=== PATIENT | male | born 1990 | race Caucasian/White ===

== ENCOUNTER 2016-08-29 02:07 | Emergency (ER) | payer OTHER ==
[~2016-08-29] VITALS: Ht 188 cm; Wt 99.8 kg
--- NOTE | 2016-08-29 02:22 | ED CARDIAC/CP/PALPITATIONS ---
History of Present Illness General Chief Complaint: General Adult Stated Complaint: "I FEEL A LIL PRESSURE IN MY CHEST" Source: patient Exam Limitations: no limitations Vital Signs & Intake/Output Vital Signs & Intake/Output Vital Signs Date Time Temp Pulse Resp B/P Pulse O2 O2 Flow FiO2 Ox Delivery Rate 08/29 0240 142/75 08/29 0231 100 Room Air 08/29 0218 98.9 80 18 175/113 91 Room Air Reconcile Medications No Known Home Medications Triage Nurses Notes Reviewed? yes HPI: Patient [place] today and is currently driving back to [place]. Patient drank 4 energy drinks to help him with the drive. 30 minutes prior to arrival he developed a substernal chest pressure that radiated to his face. He denies any shortness of breath. Patient states the symptoms are slowly resolving. Patient denies any diaphoresis. There is no nausea or vomiting. Patient has never had symptoms like this before. Patient comes in for evaluation. Past History Travel History Traveled to [facility] past 21 day No Medical History Any Pertinent Medical History? none Surgical History Surgical History: none Psychosocial History Tobacco Use: Never used ETOH Use: denies use Illicit Drug Use: denies illicit drug use Family History Hx Contributory? No Review of Systems Review of Systems Constitutional: Reports: no symptoms. EENTM: Reports: no symptoms. Respiratory: Reports: no symptoms. Cardiovascular: Reports: see HPI, chest pain. GI: Reports: no symptoms. Genitourinary: Reports: no symptoms. Musculoskeletal: Reports: no symptoms. Skin: Reports: no symptoms. Neurological/Psychological: Reports: no symptoms. Hematologic/Endocrine: Reports: no symptoms. Immunologic/Allergic: Reports: no symptoms. All Other Systems: Reviewed and Negative Physical Exam Physical Exam General Appearance: well developed/nourished, alert, awake, anxious, mild distress Head: atraumatic, normal appearance Eyes: Bilateral: PERRL, EOMI. Ears, Nose, Throat: normal pharynx, normal ENT inspection, hearing grossly normal Neck: normal inspection, supple, full range of motion Respiratory: normal breath sounds, chest non-tender, no respiratory distress, lungs clear Cardiovascular: regular rate/rhythm, normal peripheral pulses Gastrointestinal: normal bowel sounds, soft, non-tender Extremities: normal inspection, normal capillary refill, normal range of motion, no edema Neurologic/Psych: no motor/sensory deficits, awake, alert, oriented x 3, normal gait, normal mood/affect Skin: intact, normal color, warm/dry Core Measures ACS in differential dx? No Severe Sepsis Present: No Septic Shock Present: No All Positive = PERC Ruled Out: Positive: age < 50 years, heart rate < 100 bpm, O2 sat > 94%, no hemoptysis, no hormone use, no prior DVT or PE, no unilateral leg swellin, no surgery/trauma w/ in 4w. [place] Criteria Score: 0 Progress Differential Diagnosis: AMI, costochondritis, musculoskeletal pain, myocarditis, pericarditis, pulmonary embolism Plan of Care: Orders Procedure Date/time Status Telemetry/Microfilming Document Preparer 08/29 236 Active TROPONIN LEVEL 08/29 236 Complete COMPREHENSIVE METABOLIC PANEL 08/29 236 Complete CBC WITHOUT DIFFERENTIAL 08/29 236 Complete EKG 08/29 210 Active Laboratory Tests 08/29/16 0250: Anion Gap 12, Estimated GFR > 60, BUN/Creatinine Ratio 13.8, Glucose 106 H, Calcium 9.9, Total Bilirubin 1.0, AST 40, ALT 99 H, Alkaline Phosphatase 40, Troponin I < 0.01, Total Protein 8.2, Albumin 5.2 H, Globulin 3.0, Albumin/ Globulin Ratio 1.7 08/29/16 0240: CBC w Diff NO MAN DIFF REQ, RBC 6.00, MCV 83.5, MCH 29.2, RDW 12.7, MPV 10.1, Gran % 38.7 L, Lymphocytes % 47.8, Monocytes % 11.4 H, Eosinophils % 1.4, Basophils % 0.7, Absolute Granulocytes 2.6, Absolute Lymphocytes 3.3, Absolute Monocytes 0.8 H, Absolute Eosinophils 0.1, Absolute Basophils 0, PUBS MCHC 35.0 Initial ED EKG: NSR, no ST T wave changes Departure Departure Disposition: HOME OR SELF CARE Condition: Stable Clinical Impression Primary Impression: Chest pain, unspecified Qualifiers: Chest pain type: other chest pain Qualified Code: R07.89 - Other chest pain Referrals: UNKNOWN (PCP/Family) Additional Instructions: return if symptoms worsen or for any concerns Departure Forms: Customer Survey General Discharge Information Prescriptions: Current Visit Scripts No Known Home Medications Critical Care Note Critical Care Note Critical Care Time: non-applicable
[2016-08-29 02:40] VITALS: BP 142/75
[2016-08-29 03:05] LABS: ABSOLUTE BASOPHIL COUNT 0 /CUMM (0.0-0.2); ABSOLUTE EOSINOPHIL COUNT 0.1 /CUMM (0.0-0.7); ABSOLUTE GRANULOCYTE CT 2.6 /CUMM (1.4-6.5); ABSOLUTE LYMPH COUNT 3.3 /CUMM (1.2-3.4); ABSOLUTE MONOCYTE COUNT 0.8 /CUMM (0.10-0.60); BASOPHIL % 0.7 % (0.0-2.0); EOSINOPHIL % 1.4 % (0-5); GRANULOCYTE % 38.7 % (42.2-75.2); HEMATOCRIT 50.1 % (42-52); MEAN CORPUSCULAR HGB 29.2 PG (27.0-31.0); MEAN CORPUSCULAR VOLUME 83.5 FL (80.0-94.0); MEAN PLATELET VOLUME 10.1 FL (7.4-10.4); PLATELET COUNT 172 /CUMM (130-400); RBC DISTRIBUTION WIDTH 12.7 % (11.5-14.5); WHITE BLOOD CELL COUNT 6.8 /CUMM (4.8-10.8)
== END 2016-08-29 04:01 ==
LOC: ERH 02:07
PROVIDERS: Emergency Medicine
DX: R07.89 Other chest pain (principal)
CPT/HCPCS: 93005; 93010